=== PATIENT | female | born 1965 | race Caucasian/White ===

== ENCOUNTER 2016-12-23 13:30 | Observation (INO) | payer BC ==
[~2016-12-23] VITALS: Ht 165.1 cm; Wt 92.5 kg
[2017-01-22] MEDS ORDERED: PHEN15CA PO (09:29)
[2017-01-22] MEDS ORDERED: HYDR12.58 PO (09:29)
[2017-01-27] MEDS ORDERED: BUPIVACAINE/PF 0.5% ONE ×2 (10:55→12:15)
[2017-01-27] MEDS ORDERED: ISOSULFAN BLUE 10 MG/ML, 5ML IV ONE ×2 (10:55→12:14)
[2017-01-27] MEDS ORDERED: LACTATED RINGERS 1,000 ML IV SCH (11:31)
[2017-01-27] MEDS ORDERED: LIDOCAINE 1%, 2ML ONE (11:41)
[2017-01-27] MEDS ORDERED: ACETAMINOPHEN 500 MG TABLET ONE (11:43)
[2017-01-27] MEDS ORDERED: GABAPENTIN 300 MG CAPSULE ONE (11:43)
[2017-01-27] MEDS ORDERED: HEPARIN 5,000 UNITS/ML, 1ML ONE (11:43)
[2017-01-27 11:56] LABS: HCG UR OBC PASS
[2017-01-27] MEDS ORDERED: ACETAMINOPHEN 500 MG TABLET PO ONE (12:00)
[2017-01-27] MEDS ORDERED: GABAPENTIN 300 MG CAPSULE PO ONE (12:00)
[2017-01-27] MEDS ORDERED: LIDOCAINE 1%, 2ML SQ PRN (12:00)
[2017-01-27] MEDS ORDERED: HEPARIN 5,000 UNITS/ML, 1ML SQ ONE (12:00)
[2017-01-27 12:08] LABS: HEMATOCRIT 44.9 % (34.6-47.8); HEMOGLOBIN 15.3 g/dL (11.7-16.4); WHITE BLOOD COUNT 8.2 x10^3/uL (3.4-10)
[2017-01-27 12:17] LABS: ASPARTATE AMINO TRANSFERASE 13 U/L (15-37); BLOOD UREA NITROGEN 12 mg/dL (7-18)
[2017-01-27] MEDS: HEPARIN 5,000 UNITS/ML, 1ML SQ SCH ×2 (13:30→22:11)
[2017-01-27] MEDS: CEFAZOLIN PMX 1GM/50ML 50 ML IVPB SCH ×2 (13:30→22:10)
[2017-01-27] MEDS: POTASSIUM CHLORIDE 40 MEQ in D5%-0.45% NACL 1,000 ML IV SCH ×2 (13:30→23:46)
[2017-01-27] MEDS ORDERED: HYDROmorphone 1 MG/ML, 1ML IV PRN ×2 (13:30→16:30)
[2017-01-27] MEDS ORDERED: DIPHENHYDRAMINE 25 MG CAPSULE PO PRN (13:30)
[2017-01-27] MEDS ORDERED: DIPHENHYDRAMINE 50 MG/ML, 1ML IV PRN (13:30)
[2017-01-27] MEDS ORDERED: ONDANSETRON 2MG/ML, 2ML ONE (13:50)
[2017-01-27] MEDS ORDERED: PROPOFOL 10 MG/ML, 50ML ONE (13:50)
[2017-01-27] MEDS ORDERED: ROCURONIUM 10 MG/ML ONE (13:50)
[2017-01-27] MEDS ORDERED: CEFAZOLIN 1,000 MG ONE (13:50)
[2017-01-27] MEDS ORDERED: PROPOFOL 10 MG/ML, 20ML ONE (13:50)
[2017-01-27] MEDS ORDERED: NEOSTIGMINE 1 MG/ML, 10ML ONE (13:50)
[2017-01-27] MEDS ORDERED: GLYCOPYRROLATE 0.2MG/1ML ONE (13:50)
[2017-01-27] MEDS ORDERED: hydrALAzine 20 MG/ML, 1ML IV PRN (16:30)
[2017-01-27] MEDS ORDERED: PROMETHAZINE 25 MG/ML, 1ML IV PRN (16:30)
[2017-01-27] MEDS ORDERED: ONDANSETRON 2MG/ML, 2ML IVPush PRN (16:30)
[2017-01-27] MEDS ORDERED: OXYcodone 5 MG/5 ML ORAL.SOL UDC PO PRN (16:30)
[2017-01-27] MEDS ORDERED: LABETALOL 5MG/ML, 20ML IV PRN (16:30)
[2017-01-27] MEDS ORDERED: HYDROcodone/APAP 7.5-325MG/15ML UDC PO PRN (16:30)
[2017-01-27] MEDS ORDERED: MEPERIDINE/PF 25MG/0.5ML IVPush PRN (16:30)
[2017-01-27] MEDS ORDERED: MIDAZOLAM 1 MG/ML, 2ML IV PRN (16:30)
[2017-01-27] MEDS ORDERED: ACETAMINOPHEN 325 MG TABLET PO PRN (16:30)
[2017-01-27] MEDS ORDERED: EPHEDRINE 50 MG/ML, 1ML IVPush PRN (16:30)
[2017-01-27] MEDS: FENTANYL PF 100 MCG/2ML IV PRN ×2 (16:40→17:15)
[2017-01-27 18:10] VITALS: BP 136/86
[2017-01-27 20:26] VITALS: BP 110/70
[2017-01-27] MEDS: HYDROmorphone 1 MG/ML, 1ML IV PRN ×2 (20:34→23:46)
[2017-01-28 00:25] VITALS: BP 108/65
[2017-01-28 03:46] VITALS: BP 109/70
[2017-01-28] MEDS: HYDROmorphone 1 MG/ML, 1ML IV PRN ×6 (04:00→18:16)
[2017-01-28] MEDS: POTASSIUM CHLORIDE 40 MEQ in D5%-0.45% NACL 1,000 ML IV SCH ×2 (05:49→16:26)
[2017-01-28] MEDS: HEPARIN 5,000 UNITS/ML, 1ML SQ SCH ×3 (05:49→20:29)
[2017-01-28] MEDS: CEFAZOLIN PMX 1GM/50ML 50 ML IVPB SCH ×3 (05:53→20:29)
[2017-01-28 08:02] VITALS: BP_SYST 105; BP_SYST 96; BP_DIAS 54; BP_DIAS 56
[2017-01-28] MEDS: ONDANSETRON 2MG/ML, 2ML IVPush PRN ×3 (08:04→20:28)
[2017-01-28] MEDS: HYDROCHLOROTHIAZIDE 12.5 MG CAPSULE PO SCH (08:26)
[2017-01-28 14:41] VITALS: BP 108/51
[2017-01-28 20:00] VITALS: BP 100/56
[2017-01-28] MEDS: OXYcodone/APAP 5/325MG TABLET PO PRN ×2 (20:28→21:50)
[2017-01-29] MEDS: OXYcodone/APAP 5/325MG TABLET PO PRN ×3 (01:09→10:03)
[2017-01-29 01:24] VITALS: BP 92/57
[2017-01-29] MEDS: POTASSIUM CHLORIDE 40 MEQ in D5%-0.45% NACL 1,000 ML IV SCH ×2 (01:39→09:20)
[2017-01-29] MEDS: CEFAZOLIN PMX 1GM/50ML 50 ML IVPB SCH (05:32)
[2017-01-29] MEDS: HEPARIN 5,000 UNITS/ML, 1ML SQ SCH (05:33)
[2017-01-29] MEDS: ONDANSETRON 2MG/ML, 2ML IVPush PRN (05:33)
[2017-01-29 08:09] VITALS: BP 98/56
[2017-01-29] MEDS: HYDROCHLOROTHIAZIDE 12.5 MG CAPSULE PO SCH (08:12)
== END 2017-01-29 10:34 | disposition home or self-care (01) ==
LOC: ORIP 01-27 10:57 → INTOOBSV 01-27 10:57 → EDSTATUS 01-27 14:00 → 4NOR 01-27 18:06
PROVIDERS: ADMIT Surgery; ATTEND Surgery
DX: C50.912 Malignant neoplasm of unspecified site of left female breast (principal); C50.911 Malignant neoplasm of unspecified site of right female breast; I10 Essential (primary) hypertension; E66.9 Obesity, unspecified
CPT/HCPCS: 19318; 36415; 38525; 71010; 76098; 80053; 81025; 85025; 86300; 88307; 88333; 88341; 88342; 93005; 96365; 96372; 96375; 96376; C1729; G0378; J0690; J1170; J1200; J1644; J2405; J2704; J2710; J3010; J3480; J3490; J7120; G0461

== ENCOUNTER → 2017-04-04 | Outpatient (CLI) | payer BC ==
[~2017-04-04] MED LIST: HYDR12.58 PO; PHEN15CA PO
== END | disposition home or self-care (01) ==
LOC: PETCFH 10:23
PROVIDERS: ATTEND Internal Medicine Hematology & Oncology
DX: C50.912 Malignant neoplasm of unspecified site of left female breast (principal)
CPT/HCPCS: 78306; A9503